=== PATIENT | female | born 1960 | race Caucasian/White ===

== ENCOUNTER 2023-10-30 01:36 | Day surgery (SDC) | payer BC, SELFPAY ==
[2023-10-26 11:07] VITALS: BMI 28.1
--- NOTE | 2023-10-26 11:14 | PC.NURSE ---
Report to the Outpatient Waiting Room, entrance under the green pavilion located off [facility], at time 0630 on date 10/30/23. Planned Procedure Time: 0830. Time changes happen often and if your time is changed the preop area will call you the afternoon before. - You and your visitor will be asked to self-screen and do not enter if you have any COVID symptoms. - A mask is optional within the hospital at this time. Patients may have clear liquids (water, carbonated beverages, clear teas, apple juice) until 3 hours prior to surgery with a maximum of 20 ounces. - No food from midnight until time of surgery Take the following medications with a SIP of water the morning of surgery: NONE DO NOT STOP ANY OF YOUR OTHER PRESCRIPTION MEDICATIONS PRIOR TO SURGERY ?EXCEPT THE FOLLOWING Medications to discontinue per physician: VITAMINS/SUPPLEMENTS Date to take last dose: 10/26/23 PT HAS ALREADY STOPPED ZEPBOUND Please no make-up, nail maltese, hairspray, perfume, deodorant, or body powder the day of surgery. No jewelry (including any body piercings) or valuables the day of surgery, leave them at home. Please take a shower or bath the night before, or the morning of, surgery with an antibacterial soap. Wear comfortable, loose fitting clothing. - Jewelry must be removed prior to entering the operating room. Rings and piercings that are not removed may be cut off. - The hospital will not accept responsibility for valuables. - Please leave all valuables, including medications, at home the day of surgery. If you are going home after surgery, a licensed logging truck driver must drive you home. - NO public transportation without another adult if you receive anesthesia. - We recommend that an adult stay with you for 24 hours following discharge. - We also recommend that you do not drive, make important decision, drink alcoholic beverages, or take any drugs that were not prescribed by your health care provider for at least 24 hours after your discharge time. Follow any additional instructions given to you from your surgeon. If you or anyone in your household have experienced Covid symptoms in the past week, please notify your surgeon or the nurse liaison at the phone number below for possible testing. Telephone instructions given to PT - SEAN MOYER and asked if any additional questions and then verbalized understanding. Patient advised to call surgeon office or pre surgery nurse liaison [phone] if any additional questions.
--- NOTE | 2023-10-29 06:43 | PM.IMHP ---
H&P: HPI History of Present Illness Date/Time: 10/29/23 06:43 Chief Complaint: postmenopausal bleeding Narrative: 63 old 2 para 2 many years postmenopausal with vaginal bleeding. She takes hormone replacement. She started septum in 4 weeks ago was in early about the time she began having vaginal bleeding. She will undergo hysteroscopy/ dilatation curettage. Risks and benefits reviewed including not exclusive , aspiration pneumonia, bleeding, transfusion, perforation injury to bowel, bladder, ureters, or other internal organs with need for laparotomy. She received the [employer] handout entitled hysteroscopy as well as dilatation curettage respectively. Had all questions answered. She asked to proceed [facility] Social History Social History Smoking packs per day: 1 Smoking cigarettes per day: 20.0 Years smoked: 23 Smoking pack-years: 23.00 Smoking status: Former smoker Tobacco type: cigarettes Smoking end date: 08/24/03 Alcohol intake: current Drinks per week: 5 Substance use: never Substance use type: does not use Living arrangements: with family Spiritual care concerns: No Meds Home Medications and Allergies Home Medications Medication Instructions Recorded Confirmed Type estradiol-norethindrone acet 0.5 1 tablet PO DAILY 10/26/23 10/26/23 History mg-0.1 mg tablet multivitamin 1 tablet PO DAILY 10/26/23 10/26/23 History tirzepatide (weight loss) 5 mg/0.5 5 mg subcut WEEKLY 10/26/23 10/26/23 History mL subcutaneous pen injector (Zepbound) turmeric 400 mg capsule 1 mg PO DAILY 10/26/23 10/26/23 History Allergies Allergy/AdvReac Type Severity Reaction Status Date / Time No Known Allergies Allergy Verified 10/26/23 11:05 Exam Const: General: cooperative, healthy appearing and comfortable Nutritional Appearance: average body habitus Orientation/consciousness: oriented to person, oriented to place and oriented to time HENMT: Head: normal to inspection Resp: Effort & Inspection: normal respiratory effort Cardio: Rate: regular rate Rhythm: regular rhythm Heart sounds: S1 normal heart sound present and S2 normal heart sound present GI: Inspection: normal to inspection : External Female Exam: normal external appearance Speculum Exam - Vagina: normal appearance of the vagina and vaginal bleeding Speculum Exam - Cervix: normal appearance of the cervix Bimanual exam- vagina & uterus: uterine shape normal Bimanual Exam- Adnexa, other: normal adnexae Assessment and Plan Assessment and plan (1) Postmenopausal bleeding: Code(s): N95.0 - Postmenopausal bleeding Status: Acute Plan hysteroscopy/dilatation curettage
--- NOTE | 2023-10-29 12:32 | WPDANESEPPF ---
Anes - Initial Pre Proc Eval Procedure: Operation Date: 10/30/23 08:30 Proposed Procedures p Hysteroscopy Dilation and Curettage - Sinan Navas MD Date/Time: 10/29/23 12:32 Surgeon: Sinan Navas MD Pre Op Diagnosis: postmenopausal bleeding Patient Data Age: 63 Gender: F Height: 1.6 m Weight: 72.15 kg Allergies Allergy/AdvReac Type Severity Reaction Status Date / Time No Known Allergies Allergy Verified 10/26/23 11:05 Home Medications Medication Instructions Recorded Confirmed Type estradiol-norethindrone acet 0.5 1 tablet PO DAILY 10/26/23 10/26/23 History mg-0.1 mg tablet multivitamin 1 tablet PO DAILY 10/26/23 10/26/23 History tirzepatide (weight loss) 5 mg/0.5 5 mg subcut WEEKLY 10/26/23 10/26/23 History mL subcutaneous pen injector (Zepbound) turmeric 400 mg capsule 1 mg PO DAILY 10/26/23 10/26/23 History hydrocodone 5 mg-acetaminophen 325 1 tablet PO Q4H PRN pain #14 tabs 10/30/23 Rx mg tablet Patient hx anesthesia problems: none Family hx anesthesia problems: none Results Review: All pre-operative results and documents have been reviewed as part of the pre-operative evaluation. [facility] Past Medical History Medical History (Updated 10/30/23 @ 08:01 by Alexx Geiger DO) Anxiety Depression Osteoarthritis PONV (postoperative nausea and vomiting) Surgical History Surgical History (Updated 10/29/23 @ 12:33 by Alexx Geiger DO) History of tonsillectomy Social History Social History Smoking packs per day: 1 Smoking cigarettes per day: 20.0 Years smoked: 23 Smoking pack-years: 23.00 Smoking status: Former smoker Tobacco type: cigarettes Smoking end date: 08/24/03 Alcohol intake: current Drinks per week: 5 Substance use: never Substance use type: does not use Living arrangements: with family Spiritual care concerns: No Anes - Eval Final PreProcedure Day of Procedure 10/29/23 12:32 Patient weight: overweight Heart: regular rate and rhythm Lungs: clear to auscultation Airway: Mallampati scale class II Neurological: alert and oriented Last oral intake: >/= 8 hours ASA classification: II Emergent: no Anesthetic plan: proceed Anesthesia type and monitoring: general GIVS and standard monitoring Results Review: All pre-operative results and documents have been reviewed as part of the pre-operative evaluation. Informed Consent: The patient's anesthetic plan and its attendant risks and benefits were discussed with the patient/family/POA. Questions were solicited and answers provided to the satisfaction of the patient/family/POA.
--- NOTE | 2023-10-30 05:50 | WPDHPUPDATE1 ---
History and Physical Update Update Date/Time: 10/30/23 05:50 History and Physical has been reviewed, including an updated exam of the patient. There are NO changes in the patient's condition. Risks, benefits, and alternatives have been discussed and questions answered. Patient agrees to proceed with procedure.
[2023-10-30 07:38] LABS: Hematocrit 45.8 % (37.0-47.0); Hemoglobin 15.8 g/dL (12.0-15.0)
[2023-10-30 07:55] VITALS: BP 128/91; PULSE 87; RESP 14; TEMP 36.3; O2SAT 98
[2023-10-30] MEDS: ACETAMINOPHEN 500 MG TABLET 1000 MG PO (07:55)
[2023-10-30] MEDS: LACTATED RINGERS 1,000 ML 30 ML IV CONT (07:55)
[2023-10-30] MEDS: LIDOCAINE HCL 1% LOCAL INJ 20 ML VIAL 10 ML INFILTRATE (08:42)
--- NOTE | 2023-10-30 08:47 | P.OP_ITS ---
Procedure Note - Detailed Date of Procedure 10/30/23 Pre-op Diagnosis postmenopausal bleeding Post-op Diagnosis Same Procedure Performed Hysteroscopy / dilatation and curettage Surgeon Sinan Navas MD Anesthesia MAC and Local Indications this is a 63-year-old female with questionable postmenopausal bleeding. Findings Benign atrophic looking endometrium. Description of Procedure The patient was prepped draped in the sterile fashion placed in the dorsal lithotomy position. Under excellent IV sedation weighted speculum placed in posterior fornix vagina. Anterior lip of the cervix grasped with single-tooth tenaculum. 2.5cc 1% xylocaine anesthesia placed at 2, 4, 8, 10:00 a.m. of the cervix. Uterus sounded to 8cm. Serial dilatation with fragmented dilators performed followed by passes the a bead of visualizing hysteroscope. Normal saline was used as visualizing medium. Each fallopian tube os could be seen and no abnormalities were seen. The instruments were withdrawn after for documen tation undertaken. The uterus then scraped over the entire 360? until good grating sound was heard. The instruments withdrawn the patient was awakened went to recovery in satisfactory condition. All sponge, needle, instrument counts were correct. There were no immediate complications Estimated Blood Loss 5 Drains No Packing No Pathology Yes Complications No immediate complications Condition Stable Disposition PACU
[2023-10-30 08:50] VITALS: BP 103/64; PULSE 79; RESP 13; O2SAT 100
[2023-10-30 09:15] VITALS: BP 116/65; PULSE 71; RESP 14; O2SAT 99
[2023-10-30 09:45] VITALS: BP 117/61; PULSE 70; RESP 14
== END 2023-10-30 10:07 | disposition home or self-care (01) ==
PROVIDERS: PCP Family Medicine; Visit Provider Obstetrics & Gynecology
PROC: 0U5B8ZZ Destruction of Endometrium, Via Natural or Artificial Opening Endoscopic (ICD-10-PCS; CPT 58563; principal; 2023-10-30 08:30)
DX: N95.0 Postmenopausal bleeding (principal); Z87.891 Personal history of nicotine dependence
CPT/HCPCS: 58558; 36415; 85014; 85018; 88305; A9270; J1100; J2250; J2405; J2704; J3010; J7120